=== PATIENT | female | born 1980 | race Caucasian/White ===

== ENCOUNTER → 2017-11-03 17:15 | Outpatient (REF) | payer BC, SELFPAY | LOC: LBN 17:15 | PROVIDERS: PCP Family Medicine; Visit Provider Obstetrics & Gynecology | DX: R30.0 Dysuria (principal) | CPT/HCPCS: 87077; 87086; 87186 ==

== ENCOUNTER 2018-01-11 16:06 | Outpatient (REF) | payer BC, SELFPAY ==
[2018-01-11 18:49] LABS: Bilirubin Negative (Negative); Blood Negative (Negative); Clarity Clear; Glucose Negative (Negative); Ketones Negative (Negative); Leukocyte Esterase Negative (Negative); Nitrite Negative (Negative); Urobilinogen 0.2 EU/dL (Up TO 0.2); pH 5.5 (5-8)
== END 2018-01-11 16:26 ==
LOC: LBN 16:06
PROVIDERS: PCP Family Medicine; Visit Provider Obstetrics & Gynecology
DX: R30.0 Dysuria (principal)
CPT/HCPCS: 81003

== ENCOUNTER 2018-06-01 15:47 | Emergency (ER) | payer BC, SELFPAY ==
[2018-06-01 15:53] VITALS: BP 123/81; PULSE 92; RESP 23; TEMP 36.6; O2SAT 96
--- NOTE | 2018-06-01 15:59 | ED.GENADUL_ITS ---
Discharge Plan Disposition Patient Disposition: HOME Condition: Good Discharge Details Chief Complaint: Allergic Clinical Impression: Allergic reaction caused by a drug Primary Care Provider: Giorgi Schwartz ED Provider: Thomas Brown Home Meds and New Rx's Prescriptions: New prednisone 20 mg tablet 40 mg PO DAILY 3 Days Qty: 6 RF: 0 famotidine [Pepcid] 20 mg tablet 20 mg PO BID 3 Days Qty: 6 RF: 0 diphenhydramine HCl [Benadryl] 25 mg capsule 50 mg PO Q6H 3 Days Qty: 24 RF: 0 epinephrine 0.3 mg/0.3 mL auto-injector 0.3 mg IM ONCE PRN (Reason: anaphylaxis) Qty: 1 RF: 0 Continued metronidazole 500 mg tablet 500 mg PO BID Qty: 14 RF: 0 sulfamethoxazole-trimethoprim [Bactrim DS] 800-160 mg tablet 1 tab PO BID Qty: 6 RF: 0 Discharge Instructions Instructions: General Allergic Reaction (ED) Additional Instructions: Avoid Bactrim and other sulfur antibiotics in the future. Please take Benadryl, Pepcid, prednisone for the next 3 days. EpiPen for future use in case of severe allergic reaction. You received ceftriaxone for UTI. Please contact Dr. Parr tomorrow to let her know how things are going. Return to ED for any increased throat swelling, difficulty breathing, other concerns. Referrals: Vianey Parr MD [ [facility]FF [facility]YSICIAN] - Giorgi Schwartz [Primary Care Provider] - Medical Decision Making Patient with soft palate and uvula edema and a feeling of throat swelling in the setting of allergic reaction to Bactrim. She is given epinephrine 0.3 mg IM. I V is established and she is given Solu-Medrol and Pepcid. She has already taken Benadryl. Patient symptoms resolved within about 10 minutes. She was observed for 4 hours. She still has mild edema of the uvula and right soft palate but it is certainly decreased. She no longer feels any throat swelling. Erythema and pruritus is not returned. Patient is given a dose of IV ceftriaxone for UTI. Patient will be taken off sulfur antibiotic. She will use Benadryl, Pepcid, prednisone for the next 3 days. She is also given a prescription for EpiPen for any future severe allergic reactions. We will have her touch base with Dr. Parr tomorrow in regards to her UTI symptoms. HPI General Mode of arrival: ambulatory . Date/Time Provider Initiated Documentation: 06/01/18 15:51 . Limitations to Documentation: no limitations . Information obtained by: patient . HPI Narrative: Patient presents to ED with allergic reaction. Patient works here in radiology. She just took Bactrim for UTI. Within 30 minutes she developed severe itching, erythema, throat discomfort. She has never had Bactrim previously. She has taken 50 mg of Benadryl orally but symptoms are getting worse especially her throat swelling. She does not have difficulty breathing at this point. She has no GI symptoms. Related Data Home Medications Medication Instructions Recorded Confirmed metronidazole 500 mg tablet 500 mg PO BID #14 tab 03/17/18 03/17/18 diphenhydramine HCl [Benadryl] 50 mg PO Q6H 3 Days #24 cap 06/01/18 epinephrine 0.3 mg IM ONCE PRN #1 each 06/01/18 famotidine [Pepcid] 20 mg PO BID 3 Days #6 tab 06/01/18 prednisone 40 mg PO DAILY 3 Days #6 tab 06/01/18 sulfamethoxazole 800 1 tab PO BID #6 tab 06/01/18 mg-trimethoprim 160 mg tablet Previous Rx's Medication Instructions Recorded metronidazole 500 mg tablet 500 mg PO BID #14 tab 03/17/18 diphenhydramine HCl [Benadryl] 50 mg PO Q6H 3 Days #24 cap 06/01/18 epinephrine 0.3 mg IM ONCE PRN #1 each 06/01/18 famotidine [Pepcid] 20 mg PO BID 3 Days #6 tab 06/01/18 prednisone 40 mg PO DAILY 3 Days #6 tab 06/01/18 sulfamethoxazole 800 1 tab PO BID #6 tab 06/01/18 mg-trimethoprim 160 mg tablet Allergies Allergy/AdvReac Type Severity Reaction Status Date / Time Sulfa (Sulfonamide Allergy Severe Anaphylaxsi Unverified 06/01/18 16:21 Antibiotics) s influenza virus vaccine, AdvReac Severe SWELLING, Unverified 03/17/18 10:13 specific FLUSHING, JOINT PAIN, INTOLERANCE Review of Systems Constitutional Denies chills, Denies fever(s) and Denies weakness ENT Denies dizziness, Denies neck pain, Denies sore throat and Reports throat swelling Cardiovascular Denies chest pain, Denies diaphoresis, Denies syncope and Denies dyspnea Respiratory Denies cough, Denies dyspnea and Denies stridor Gastrointestinal Denies abdominal pain, Denies cramping, Denies diarrhea, Denies loose stools, Denies nausea and Denies vomiting Genitourinary Reports dysuria, Denies pelvic pain and Denies flank pain Musculoskeletal Denies back pain, Denies neck pain and Denies numbness Integumentary/Breasts Reports erythema and Reports rash Neurologic Denies dizziness, Denies syncope, Denies numbness and Denies weakness Allergic/Immunologic Reports throat swelling [facility] Medical History Skin tag (Acute) Contraception (Chronic) Fatigue due to sleep pattern disturbance Surgical History Appendectomy (~2001) Biopsy of breast section (~03/2006) Endometrial Ablation Family History Mother No problems noted. Father Diabetes Essential hypertension Brother No problems noted. Grandfather Essential hypertension Heart disease Grandfather Essential hypertension Heart disease Hyperlipidemia Grandmother No problems noted. Grandmother Essential hypertension Social History Smoking and Tabacco status: Never Female Reproductive History Menstrual Duration of menses: other (light irreg painless menses secondary to endometrial ablation.) control method: permanent sterilization ( vasectomy) History History 2 Para Hx # Term Pregnancies 1 Multiple births Hx # Pregnancies Ectopic pregnancies AB induced Hx Number of Living Children AB spontaneous Exam Const General: cooperative and no acute distress Orientation: alert and oriented x3 [facility] Head: normocephalic and atraumatic Mouth: lip normal, oropharynx normal and moist mucous membranes Throat: uvular edema and other (Soft palate edema on the right) Eyes Conjunctivae: conjunctivae normal Neck Neck: trachea midline Resp Effort & Inspection: normal respiratory effort Auscultation: clear to auscultation bilaterally Cardio Rate: regular rate Rhythm: regular rhythm Heart Sounds: S1 normal and S2 normal Skin General skin exam: erythema (Erythema of the hands and forearms with diffuse pruritus.) Neuro General: alert, oriented x3, no focal motor deficits and CN's II-XI intact bilat erally Extrem General: no clubbing, cyanosis or edema
[2018-06-01] MEDS: methylPREDNISolone SUCC 125 MG VIAL IVP (16:06)
[2018-06-01] MEDS: FAMOTIDINE 20 MG/50 ML BAG 200 MG IVPB (16:06)
[2018-06-01] MEDS: EPINEPHrine 0.3 MG KIT IM (16:06)
--- NOTE | 2018-06-01 16:06 | NUR.NOTE ---
patient lung sounds clear, lip is getting better per patient, hands are not on fire Nursing Note:
[2018-06-01 16:27] VITALS: BP 130/88; PULSE 83; RESP 18; O2SAT 98
--- NOTE | 2018-06-01 16:54 | NUR.NOTE ---
patient reports feels like swelling is migrating in inside the mouth, no stridor or wheezing, MD aware Nursing Note:
--- NOTE | 2018-06-01 17:29 | NUR.NOTE ---
patient resting comfortably, will continue Nursing Note:
[2018-06-01 19:05] VITALS: PULSE 97; RESP 22; O2SAT 95
--- NOTE | 2018-06-01 19:52 | NUR.NOTE ---
Nursing Note: Pt had ceftriaxone infused without issue. Airway patent, oxygen sat 100%. awaiting d/c paperwork, will continue to monitor.
[2018-06-01 20:14] VITALS: PULSE 90; RESP 20; O2SAT 100
== END 2018-06-01 20:15 | disposition home or self-care (01) ==
PROVIDERS: Emergency Provider Emergency Medicine; PCP Family Medicine
DX: T78.40XA Allergy, unspecified, initial encounter (principal); N39.0 Urinary tract infection, site not specified
CPT/HCPCS: 96365; 96367; 96372; 96375; 99284; J0171; J0696; J2930

== ENCOUNTER 2019-06-09 12:42 | Outpatient (REF) | payer BC, SELFPAY ==
--- NOTE | 2019-06-09 11:30 | PAPFT_PTH ---
PATIENT: Susanna Emery LOC: [facility] U#:[id number] AGE/SX: 38/F ROOM: RE06/09/[address]: ROSALINDA Sidhu : 1980 BED: DIS: 06/09/2019 SPEC #: [id number] RECD: 06/09/19 13:03 STATUS: BAYLEE REGrabiel #: [id number] EYAD: 06/09/19 11:[address]: Lanie Ramos DEPT: [facility] Cytology RECD BY: Dawna Thomas ENTERED: 06/09/19 13:03 SP TYPE: PAPFT OTHR DR: Giorgi Schwartz MD Tissues: 1 - CX/ENDOCX FOR PAP SMEARS Procedures: PAP THIN PREP/UVM Screening HPV DNA PROBE Comments: [id number]
== END 2019-06-09 13:02 ==
LOC: LBN 12:42
PROVIDERS: PCP Family Medicine; Visit Provider Nurse Practitioner Family
DX: Z12.4 Encounter for screening for malignant neoplasm of cervix (principal); Z11.51 Encounter for screening for human papillomavirus (HPV)
CPT/HCPCS: 88142; 87624

== ENCOUNTER 2019-07-19 11:55 | Outpatient (CLI) | payer BC, SELFPAY ==
[2019-07-19 14:02] LABS: Glucose 83 mg/dL (74-106)
== END 2019-07-19 12:15 ==
PROVIDERS: PCP Family Medicine; Visit Provider Family Medicine
DX: E03.9 Hypothyroidism, unspecified (principal); R73.9 Hyperglycemia, unspecified
CPT/HCPCS: 36415; 82947; 84443

== ENCOUNTER 2019-07-19 16:33 | Emergency (ER) | payer BC, SELFPAY ==
[2019-07-19] VITALS (7 sets, daily range): BP systolic 132–140; BP diastolic 78–90; PULSE 74–94; RESP 15–23; TEMP 37.2; O2SAT 98–100
--- NOTE | 2019-07-19 16:47 | ED.GENADUL_ITS ---
Discharge Plan Disposition Patient Disposition: HOME Condition: Good Discharge Details Chief Complaint: Chest Pain Clinical Impression: Chest pain, Light headedness Primary Care Provider: Giorgi Schwartz ED Provider: Yovani De La Cruz Home Meds and New Rx's Prescriptions: No Action epinephrine 0.3 mg/0.3 mL auto-injector 0.3 mg IM ONCE PRN (Reason: anaphylaxis) Qty: 1 RF: 0 Discharge Instructions Instructions: Chest Pain (ED), Lightheadedness (ED) Additional Instructions: At this time your cardiac work-up shows no abnormalities. Your blood work and physical exam show no suggestions of stroke or mini stroke at this time. Your blood work is otherwise unremarkable and very reassuring. If you notice any worsening of your symptoms, or any new symptoms such as vomiting, diarrhea, fever, chills, shortness of breath, chest pain, numbness, weakness, or fainting , please return immediately to the emergency department for reevaluation. Please follow up with your primary care provider as soon as possible for reassessment and reevaluation. As always, it was a pleasure participating in your medical care today. Referrals: Giorgi Schwartz. [Primary Care Provider] - Medical Decision Making 38-year-old female with no significant past medical history who presents today for evaluation of lightheadedness dizziness and chest pain. Patient states that for the last 5 weeks she has had occasional aches in her left leg, mild tingling on the lateral aspect of her left calf. It is not tender to the touch, but symptoms were present independently. This is remained stable, yesterday the patient noticed a sudden onset of dizziness, lightheadedness, where she felt that she had some tingling on the left side of her body, felt like she was going to pass out. She did not pass out. She became extremely sweaty shortly thereafter, eventually the symptoms resolved totally on their own. She had no chest pain at that time or shortness of breath. However today she developed some mild central chest pain, which she states she has had before. She denies any burning sensation. She describes it is achy in nature. It comes and goes, and is not improved with leaning forward. She does admit to a mild pleuritic component when she breathes out, but denies any inhalation pain. She denies any shortness of breath, chest tightness, bandlike sensation around the chest, or tearing or ripping sensation. At this time she has no other symptoms whatsoever and feels well. She denies any other episodes of lightheadedness. Denies PE risk factors such as recent long car rides, immobilization, recent surgery, prior history of DVT or PE, family history of PE or DVT, morbid obesity, exogenous estrogen and smoking, hemoptysis, history of cancer. She does have a family history of cardiac disease in her father and grandfather, but denies any previous cardiac disease for herself. No other complaints at this time. No other modifying factors. Physical exam demonstrates no evidence of neurologic deficit. Physical exam otherwise demonstrates no abnormalities in general. Differential is broad, but may include potential PE, although with no significant PE risk factors I do feel that rule out is certainly reasonable with a d-dimer. Cardiac etiology unlikely but we will perform ACS work-up. Dehydration may certainly be a component. Electrolyte abnormality also of question. We will gently rehydrate, monitor for his life-threatening abnormalities and reassess. At this time I see no indication for CT imaging of the head, with no evidence of neurologic deficit or other abnormality. However I did discuss imaging options with the patient regards a CT scan of the head patient would like to hold off on this radiographic evaluation as well. 6:18 PM Patient's laboratory work-up is returned, no abnormalities. D-dimer is well within normal limits. No clinical evidence of DVT, no concerning symptoms suggestive of significant PE. Symptoms inconsistent with acute intracranial abnormality with no focal neurologic deficits. Troponin is normal. No indication for repeat troponin as her symptoms occurred over 6 hours ago. Bedside limited ultrasound of the heart demonstrates no pericardial effusion, cardiac wall hypertrophy, signs of right heart strain, or motion of normalities. With no abnormalities on exam, in asymptomatic patient, do feel her symptoms may have been secondary to mild dehydration, her chest pain may be from very mild gastritis versus musculoskeletal irritation. This time I do feel that the patient can be discharged home. With discussed red flags which to return. I have extensively reviewed the treatment plan and discharge instructions with the patient. I have addressed all patient concerns at this time. The patient was made aware of what symptoms to monitor for that would warrant a return to the emergency department. Discussed the plan with the patient, they demonstrate verbal understanding and agreement with our assessment and plan at this time. EKG 16: 39 Rate 86, intervals normal, sinus rhythm, no significant ST elevations or depressions, there is an inverted T wave in V1. No evidence of STEMI. No evidence of Brugada syndrome, no epsilon wave, no delta wave. FINDINGS: Lungs: Clear lungs. Pleural space: No pneumothorax. No sizable pleural effusion. Heart/Mediastinum: No cardiomegaly. Bones/joints: Unremarkable. IMPRESSION: Clear lungs. Thank you for allowing us to participate in the care of your patient. Dictated and Authenticated by: Steven Pineda MD 07/19/2019 6:05 PM Eastern Time ([place] & [place]) HPI General Date/Time Provider Initiated Documentation: 07/19/19 16:47 . HPI Narrative: 38-year-old female with no significant past medical history who presents today for evaluation of lightheadedness dizziness and chest pain. Patient states that for the last 5 weeks she has had occasional aches in her left leg, mild tingling on the lateral aspect of her left calf. It is not tender to the touch, but symptoms were present independently. This is remained stable, yesterday the patient noticed a sudden onset of dizziness, lightheadedness, where she felt that she had some tingling on the left side of her body, felt like she was going to pass out. She did not pass out. She became extremely sweaty shortly thereafter, eventually the symptoms resolved totally on their own. She had no chest pain at that time or shortness of breath. However today she developed some mild central chest pain, which she states she has had before. She denies any burning sensation. She describes it is achy in nature. It comes and goes, and is not improved with leaning forward. She does admit to a mild pleuritic component when she breathes out, but denies any inhalation pain. She denies any shortness of breath, chest tightness, bandlike sensation around the chest, or tearing or ripping sensation. At this time she has no other symptoms whatsoever and feels well. She denies any other episodes of lightheadedness. Denies PE risk factors such as recent long car rides, immobilization, recent surgery, prior history of DVT or PE, family history of PE or DVT, morbid obesity, exogenous estrogen and smoking, hemo ptysis, history of cancer. She does have a family history of cardiac disease in her father and grandfather, but denies any previous cardiac disease for herself. No other complaints at this time. No other modifying factors. Related Data Home Medications Medication Instructions Recorded Confirmed epinephrine 0.3 mg IM ONCE PRN #1 each 06/01/18 06/09/19 Previous Rx's Medication Instructions Recorded epinephrine 0.3 mg IM ONCE PRN #1 each 06/01/18 Allergies Allergy/AdvReac Type Severity Reaction Status Date / Time Sulfa (Sulfonamide Allergy Severe Anaphylaxsi Unverified 06/01/18 16:21 Antibiotics) s influenza virus vaccine, AdvReac Severe SWELLING, Unverified 03/17/18 10:13 specific FLUSHING, JOINT PAIN, INTOLERANCE General Stated Complaint: Chest Pain BERNARD: 2 Review of Systems All systems reviewed & are unremarkable except as noted in HPI and below PFSH Medical History (Updated 07/19/19 @ 18:09 by Yovani De La Cruz DO) Contraception (Chronic) 's vasectomy Fatigue due to sleep pattern disturbance recommended measures to improve sleep hygeine Skin tag (Acute) on chest. Surgical History (Updated 06/09/19 @ 11:37 by Lanie Ramos NP) Appendectomy (~2001) Biopsy of breast Fibroadenoma section (~03/2006) Endometrial Ablation Thermachoice Status post breast augmentation (Acute) Social History Smoking/Tobacco Use Status: Never Alcohol Intake: current Alcohol Intake frequency: holidays/special occasions only Drug use: Never Do you feel safe at home: Yes Do you feel safe in your relationship?: Yes Female Reproductive History Menstrual Duration of menses: other (light irreg painless menses secondary to endometrial ablation.) control method: permanent sterilization ( vasectomy) History History 2 Para Hx # Term Pregnancies 1 Multiple births Hx # Pregnancies Ectopic pregnancies AB induced Hx Number of Living Children AB spontaneous Exam Narrative Exam Narrative: 1.Const: Well-nourished, Well-developed, appearing stated age 2.Eyes: PERRL, no conjunctival injection, and symmetrical lids. 3.ENT: Atraumatic external nose and ears. Dry MM. Neck: Symmetric, trachea midline, No thyromegaly. 4.CVS: +S1/S2, No murmurs or gallops. Peripheral pulses 2+ and equal in all extremities. Brisk capillary refill in all extremities. No improvement of pain when she leans forward. No reproducible pain on palpation of the chest. 5.RESP: Unlabored respiratory effort. Clear to auscultation bilaterally. No wheezes rales or rhonchi 6.GI: Soft, Nontender/Nondistended, No hepatosplenomegaly. No guarding or rebound. 7.MSK: Normocephalic/Atraumatic, Extremities w/o deformity or ttp No cyanosis or clubbing, Normal movement of all extremities no calf tenderness. No unilateral calf or lower extremity swelling. Dorsalis pedis posterior tibial pulses +2 bilaterally. 8.Skin: Warm, Dry. No rashes or lesions. No redness or warmth in the lower extremities. 9.Neuro: account development representative II-XII grossly intact. Sensation grossly intact, no focal neurologic deficits. All 6 cardinal planes of vision are fully intact. No evidence of rotatory or vertical nystagmus. The patient demonstrated a normal [id number]-phzdbx, good dexterity. There was no evidence of dysdiadochokinesia. Patient was able to ambulate without difficulty. There was no wide-based gait. Romberg testing was normal. Udna-zm-gwvg testing was normal. Sensation was intact bilaterally as well as muscle strength bilaterally for all extremities. Patient was able to verbalize butter cup with no slurring, or miss pronunciation. 10.Psych: (AAO) x3. Appropriate mood and affect Course Vital Signs Vital signs: Vital Signs Temperature 37.2 C 07/19/19 16:36 Pulse 94 H 07/19/19 16:36 Respiratory Rate 22 07/19/19 16:36 Blood Pressure 140/90 07/19/19 16:36 Pulse Oximetry 99 07/19/19 16:36 Temperature 37.2 C 07/19/19 16:36 Temperature Source Skin 07/19/19 16:36 Pulse 94 H 07/19/19 16:36 Respiratory Rate 22 07/19/19 16:36 Respiratory Effort 07/19/19 16:43 Blood Pressure 140/90 07/19/19 16:36 Pulse Oximetry 99 07/19/19 16:36 Oxygen Delivery Method Room Air 07/19/19 16:36 Oxygen Flow Rate 0 07/19/19 16:36
[2019-07-19] MEDS: Normal Saline 500 ML IV ×2 (17:11→17:37)
[2019-07-19 17:12] LABS: Abs Immature Grans 0.01 k/cumm (0.0-0.09); Absolute Basophil Count 0.02 k/cumm (0.0-0.2); Absolute Eosinophil Count 0.24 k/cumm (0.0-0.7); Absolute Lymphocyte Count 2.22 k/cumm (1.2-3.4); Absolute Monocyte Count 0.54 k/cumm (0.11-0.7); Absolute Neutrophil Count 4.37 k/cumm (1.2-6.7); Basophils % 0.3; Eosinophils % 3.2; HCT 40.4 % (36.0-46.0); HGB 13.5 g/dL (12.0-15.5); Immature Grans % 0.1 %; Mean Corp. HGB Concentration 33.4 g/dL (32.0-36.0); Mean Corpuscular Hemoglobin 30.2 pg (27.0-33.0); Mean Corpuscular Volume 90.4 fL (80-95); Mean Platelet Volume 9.7 fL (8.0-11.0); Monocytes % 7.3; Neutrophils % 59.1; Platelet Count 296 x1000/uL (130-400); RBC 4.47 m/cumm (4.00-5.20); RBC Distribution Width 12.8 % (11.7-14.6)
[2019-07-19 17:19] LABS: INR 1.1 (0.9-1.1); PTT Activated 28.7 sec (21.0-31.4); Prothrombin Time 11.3 sec (9.3-11.0)
[2019-07-19 17:28] LABS: Troponin I < 0.05 ng/Ml (<0.06)
[2019-07-19 17:30] LABS: ALT 19 U/L (14-59); AST 13 U/L (15-37); Albumin 3.9 g/dL (3.4-5.0); Alkaline Phosphatase 61 U/L (46-116); Anion Gap 8.2 mmol/L (3-11); BUN 12 mg/dL (7-18); Bilirubin, Total 0.3 mg/dL (0.2-1.0); CO2 27.8 mmol/L (21.0-32.0); CREATININE 0.76 mg/dL (0.55-1.02); Calcium 8.8 mg/dL (8.5-10.1); Chloride 104 mmol/L (98-107); Glucose 89 mg/dL (74-106); Potassium 3.5 mmol/L (3.5-5.1); Sodium 140 mmol/L (136-145); Total Protein 7.7 g/dL (6.4-8.2)
--- NOTE | 2019-07-19 17:30 | DI.RAD_ITS ---
EXAM: XR CHEST 2V PA LATERAL CLINICAL HISTORY: central chest pain TECHNIQUE: 2D digital imaging was performed. COMPARISON: No exams were available for comparison FINDINGS: The heart is not enlarged. The lungs are clear and well expanded. No pleural effusion seen. Mediastin al contours appear intact. IMPRESSION: Normal chest
[2019-07-19 17:31] LABS: NT-proBNP 26 pg/mL (<300); TSH (W/Ref FT4) 0.96 uIU/mL (0.36-3.74)
[2019-07-19 17:37] LABS: D-Dimer 140 ng/mlFEU (<500)
--- NOTE | 2019-07-19 18:05 | DI.VRAD_ITS ---
PROCEDURE INFORMATION: Exam: XR Chest, 2 Views Exam date and time: 07/19/2019 5:41 PM Age: 38 years old Clinical indication: Other: Central chest pain TECHNIQUE: Imaging protocol: XR of the chest Views: 2 views. COMPARISON: No relevant prior studies available. FINDINGS: Lungs: Clear lungs. Pleural space: No pneumothorax. No sizable pleural effusion. Heart/Mediastinum: No cardiomegaly. Bones/joints: Unremarkable. IMPRESSION: Clear lungs. Dictated and Authenticated by: Steven Pineda MD. Ordering:SENTHIL Pina MD
== END 2019-07-19 18:24 | disposition home or self-care (01) ==
PROVIDERS: Emergency Provider Student in an Organized Health Care Education/Training Program; PCP Family Medicine
DX: R07.89 Other chest pain (principal); R42 Dizziness and giddiness; E86.0 Dehydration; M79.605 Pain in left leg; Z82.49 Family history of ischemic heart disease and other diseases of the circulatory system
CPT/HCPCS: 80053; 81025; 93005; 96360; 99284; 71046; 83880; 84443; 84484; 85025; 85379; 85610; 85730; 93010

== ENCOUNTER 2020-08-12 03:27 | Outpatient (CLI) | payer BC, SELFPAY ==
--- NOTE | 2020-08-12 10:54 | DI.MAMMO_ITS ---
Exam(s) MG MAMMO SCREENING 60 MIN DUR EXAM: MG MAMMO SCREENING 60 MIN DUR CLINICAL HISTORY: screening,z12.39. TECHNIQUE: Bilateral full field digital CC and MLO mammographic images were obtained with 3D tomosyn thesis and utilizing computer aided detection (CAD). COMPARISON: None. This is a baseline mammogram on this 39-year-old patient FINDINGS: Both CC and MLO views of both breasts performed. Both conventional 2D and 3D implant displacement vi ews were performed. There are bilateral silicone retropectoral implants which appear intact. No capsular calcification. Fibroglandular tissue is moderately dense. No obvious focal findings in left breast. In the right b reast there are few benign-appearing asymmetric nodular densities noted. One of these has typical ap pearance of intramammary lymph node. In addition, there is a group of in the right breast located ap proximately 5-6 cm in from the nipple which presently has benign appearance but requires repeat mammo gram in 6 months. There are no significant microcalcification groups in the opposite-left breast. There is no significant architectural distortion nor skin thickening-retraction. IMPRESSION: 1. Intact appearing bilateral retropectoral silicone implants. 2. No radiographic evidence of malignancy in left breast. 3. Subtle right breast nodular densities. Ultrasound recommended. 4. Right breast presently benign-appearing microcalcification group which requires repeat mammogram i n 6 months to ensure stability. BI-RADS Category 0 - Assessment Incomplete: Need additional imaging evaluation Breast Density - Category C - Heterogeneously dense Breast density Category C or D implies that the patient has dense breast tissue. Dense breast tissue can make it harder to find cancer on a mammogram. Dense breast tissue is also associated with an incr eased risk of breast cancer. This information about the result of the mammogram report was provided to the patient to raise their awareness. Use this report when you speak with the patient about their risks for breast cancer, which includes their family history. At that time, you may recommend additional screening tests (Ultrasoun d or MRI) as these tests may add significant information. A negative radiographic report should not delay biopsy if a dominant or clinically suspicious mass is present. Up to ten percent of cancers are not identified on mammography. A negative report may reinforce clinical impression. Adenosis and dense breasts may obscure an underlying neoplasm. False positive reports average 6 to 10%. Patient will receive a letter notifying them of these results.
[2020-08-12 11:53] LABS: Hemoglobin A1C 4.9 % (<5.7)
[2020-08-12 12:28] LABS: Calculated LDL 89 mg/dL (<100); Cholesterol 164 mg/dL (<200); HDL Cholesterol 58 mg/dL (40-60); Triglyceride 87 mg/dL (<150)
== END 2020-08-12 03:28 | disposition home or self-care (01) ==
LOC: LBO 03:27
PROVIDERS: PCP Family Medicine; Visit Provider Nurse Practitioner Family
DX: Z12.31 Encounter for screening mammogram for malignant neoplasm of breast (principal); R92.8 Other abnormal and inconclusive findings on diagnostic imaging of breast; Z98.82 Breast implant status; Z13.1 Encounter for screening for diabetes mellitus; Z13.220 Encounter for screening for lipoid disorders
CPT/HCPCS: 77063; 77067; 80061; 83036

== ENCOUNTER 2021-02-18 10:14 | Outpatient (REF) | payer BC, SELFPAY ==
--- NOTE | 2021-02-18 10:00 | PAPFT_PTH ---
PATIENT: Susanna Emery LOC: [facility] U#:[id number] AGE/SX: 40/F ROOM: RE02/18/[address]: Vianey Parr : 1980 BED: DIS: 02/18/2021 SPEC #: [id number] RECD: 02/18/21 12:54 STATUS: BAYLEE REGrabiel #: [id number] EYAD: 02/18/21 10:[address]: Vianey Parr DEPT: [facility] Cytology RECD BY: Dawna Thomas ENTERED: 02/18/21 12:54 SP TYPE: PAPFT OTHR DR: Samson Wellington, MEMO Tissues: 1 - CX/ENDOCX FOR PAP SMEARS Procedures: PAP THIN PREP/UVM Screening HPV DNA PROBE Comments: [id number]
== END 2021-02-18 10:15 | disposition home or self-care (01) ==
LOC: LBN 10:14
PROVIDERS: PCP Nurse Practitioner Family; Visit Provider Obstetrics & Gynecology Gynecology
DX: Z12.4 Encounter for screening for malignant neoplasm of cervix (principal); Z11.51 Encounter for screening for human papillomavirus (HPV)
CPT/HCPCS: 88142; 87624

== ENCOUNTER 2021-02-24 00:18 | Outpatient (CLI) | payer BC, SELFPAY ==
--- NOTE | 2021-02-24 | DI.US_ITS ---
Exam(s) US BREAST RT COMPLETE EXAM: US BREAST BILATREAL COMPLETE CLINICAL HISTORY: 6 MO FU R92.8. TECHNIQUE: Complete ultrasound of the both breasts was performed including all 4 quadrants, the retr oareolar regions, and the bilateral axilla. COMPARISON: Prior ultrasound examination of July 2020 was reviewed as was the baseline mammogram of t hat time. Also today's diagnostic bilateral mammogram was reviewed. This is 40-year-old patient und erwent remote ultrasound-guided biopsy of right breast finding 12 o'clock position over 20 years ago, according to patient FINDINGS: RIGHT BREAST ULTRASOUND: At the 12 o'clock position the previously described lobulated nodule is again noted, unchanged in siz e, measuring 10 x 5 millimeters, unchanged echogenic focus consistent with biopsy marker clip is note d within this nodule. Probable fibroadenoma. Otherwise, benign-appearing lymph node noted at the 5 o'clock position and other benign-appearing lym ph node at 7 o'clock position and other benign appearing lymph node at the 9 o'clock position. Some of these are visible on the mammogram. No new solid lesions in the right breast. No new findings in the immediate retroareolar region. Right axilla is negative for significant adenopathy. LEFT BREAST ULTRASOUND: At the 11 o'clock position there is again noted the previously described well-defined wider than tall er 2.8 by 0 point 8 cm nodule. This exhibits slightly increased through transmission and is probably another fibroadenoma, unchanged from the July 2020 study. There are no new solid lesions in all 4 quadrants of the left breast. Left axilla is negative for significant adenopathy. IMPRESSION: Stable ultrasound appearance of what are probably fibroadenomas, 1 in each breast, specifically at th e 12 o'clock position of the right breast and 11 o'clock position of the left breast. The 12 o'clock position right breast nodule underwent remote biopsy by ultrasound guidance according to the patient approximately 20 years ago, and indeed there appears to be a biopsy marker clip located within this right breast 12 o'clock position nodule. See separate diagnostic right breast mammogram report from today. This revealed stable microcalcific ations which are unchanged from the baseline mammogram of the aug 12 2020. Appropriate follow-up is to keep her on a yearly mammogram and ultrasound schedule, this implying olga lidia t her next bilateral breast imaging would be in July 2021, with earlier imaging if a self detected cira ast change is noted.. BI-RADS Category 2 - Benign Findings Breast Density - Category C - Heterogeneously dense Breast density Category C or D implies that the patient has dense breast tissue. Dense breast tissue can make it harder to find cancer on a mammogram. Dense breast tissue is also associated with an incr eased risk of breast cancer. This information about the result of the mammogram report was provided to the patient to raise their awareness. Use this report when you speak with the patient about their risks for breast cancer, which includes their family history. At that time, you may recommend additional screening tests (Ultrasoun d or MRI) as these tests may add significant information. A negative radiographic report should not delay biopsy if a dominant or clinically suspicious mass is present. Up to ten percent of cancers are not identified on mammography. A negative report may reinforce clinical impression. Adenosis and dense breasts may obscure an underlying neoplasm. False positive reports average 6 to 10%. Patient will receive a letter notifying them of these results.
--- NOTE | 2021-02-24 | DI.US_ITS ---
Exam(s) US BREAST LT COMPLETE EXAM: US BREAST LT COMPLETE CLINICAL HISTORY: 6 MO FU R92.8. TECHNIQUE: Complete ultrasound of the breast was performed including all 4 quadrants, the retroareo lar region, and the ipsilateral axilla. COMPARISON: Prior mammograms were reviewed. FINDINGS: See combined report entitled BILATERAL BREAST ULTRASOUND IMPRESSION: Appropriate follow-up is . Category: Density: Breast density Category C or D implies that the patient has dense breast tissue. Dense breast tissue can make it harder to find cancer on a mammogram. Dense breast tissue is also associated with an incr eased risk of breast cancer. This information about the result of the mammogram report was provided to the patient to raise their awareness. Use this report when you speak with the patient about their risks for breast cancer, which includes their family history. At that time, you may recommend additional screening tests (Ultrasoun d or MRI) as these tests may add significant information. A negative radiographic report should not delay biopsy if a dominant or clinically suspicious mass is present. Up to ten percent of cancers are not identified on mammography. A negative report may reinforce clinical impression. Adenosis and dense breasts may obscure an underlying neoplasm. False positive reports average 6 to 10%. Patient will receive a letter notifying them of these results.
--- NOTE | 2021-02-24 13:15 | DI.MAMMO_ITS ---
Exam(s) MAMMO DIAGNOSTIC UNI EXAM: MAMMO DIAGNOSTIC UNI -RIGHT CLINICAL HISTORY: 6 mo f/u, r92.8. TECHNIQUE: Unilateral spot mammographic images were obtained with 3D tomosynthesis technique and uti lizing computer aided detection (CAD). COMPARISON: Prior baseline mammogram of July 2020 FINDINGS: Again noted are retropectoral silicone implants. Benign-appearing lymph nodes again noted. The microcalcification group previously described on the baseline mammogram appears unchanged and rem ains punctate and benign appearance. There are no new malignant-appearing microcalcification groups. No new architectural distortion or skin thickening-traction. Please see separate bilateral breast ultrasound report reveals stable findings compared to prior ultr asound of July 2020. IMPRESSION: Moderately dense fibroglandular tissue. Stable appearance of previously described right breast micro calcification group. See separate breast ultrasound report. Appropriate follow-up is to keep this patient on a yearly mammogram and ultrasound schedule, this imp lying that her next bilateral breast imaging would be in July 2021, with earlier imaging if a self det ected breast change is noted.. The patient was informed of the findings and follow-up recommendations prior to leaving the [facility] today. BI-RADS Category 2 - Benign Findings Breast Density - Category C - Heterogeneously dense Breast density Category C or D implies that the patient has dense breast tissue. Dense breast tissue can make it harder to find cancer on a mammogram. Dense breast tissue is also associated with an incr eased risk of breast cancer. This information about the result of the mammogram report was provided to the patient to raise their awareness. Use this report when you speak with the patient about their risks for breast cancer, which includes their family history. At that time, you may recommend additional screening tests (Ultrasoun d or MRI) as these tests may add significant information. A negative radiographic report should not delay biopsy if a dominant or clinically suspicious mass is present. Up to ten percent of cancers are not identified on mammography. A negative report may reinforce clinical impression. Adenosis and dense breasts may obscure an underlying neoplasm. False positive reports average 6 to 10%. Patient will receive a letter notifying them of these results.
== END 2021-02-24 00:38 ==
PROVIDERS: PCP Nurse Practitioner Family; Visit Provider Nurse Practitioner Family
DX: R92.8 Other abnormal and inconclusive findings on diagnostic imaging of breast (principal); Z09 Encounter for follow-up examination after completed treatment for conditions other than malignant neoplasm
CPT/HCPCS: 76642; 77061; 77065; G0279

== ENCOUNTER 2021-09-02 21:34 | Outpatient (REF) | payer BC, SELFPAY ==
[2021-09-02 15:19] LABS: Clarity CLOUDY (Clear)
[2021-09-02 15:20] LABS: Nitrite Color Interference (Negative)
[2021-09-02 15:21] LABS: Bilirubin Color Interference (Negative); Blood Color Interference (Negative); Glucose Color Interference mg/dL (Negative); Ketones Color Interference mg/dL (Negative); Leukocyte Esterase Color Interference (Negative); Urobilinogen Color Interference EU/dL (Up TO 0.2)
[2021-09-02 15:23] LABS: Bacteria Many HPF (Negative); C & S Indicated? C&S Done As Ordered; Casts Negative LPF (Negative); Crystals Negative HPF (Negative); Epithelial Cells Few HPF (Negative); Mucus Negative (Negative); WBC 20-50 HPF (0-5)
== END 2021-09-02 21:35 | disposition home or self-care (01) ==
LOC: LBN 21:34
PROVIDERS: PCP Nurse Practitioner Family; Visit Provider Obstetrics & Gynecology
DX: R30.0 Dysuria (principal)
CPT/HCPCS: 87077; 81003; 81015; 87086; 87186

== ENCOUNTER 2021-09-30 15:06 | Outpatient (REF) | payer BC, SELFPAY ==
[2021-09-30 15:19] LABS: Source Nasal/Nares
[2021-10-01 05:39] LABS: COVID-19 PCR Negative (Negative)
== END 2021-09-30 15:07 | disposition home or self-care (01) ==
LOC: LBN 15:06
PROVIDERS: PCP Nurse Practitioner Family; Visit Provider Urology
DX: Z20.822 Contact with and (suspected) exposure to COVID-19 (principal); Z01.818 Encounter for other preprocedural examination
CPT/HCPCS: 87635

== ENCOUNTER 2021-10-02 07:02 | Day surgery (SDC) | payer BC, SELFPAY ==
[2021-10-02 07:18] VITALS: BP 129/90; PULSE 86; RESP 16; TEMP 36.4; O2SAT 98
[2021-10-02] MEDS: Ciprofloxacin 500 MG TAB PO (07:36)
[2021-10-02] MEDS: Lactated Ringers 1,000 ML 80 ML IV (07:47)
--- NOTE | 2021-10-02 08:59 | W.PM.HP.N ---
Date of service: 10/02/21 Time of Service: 08:59 Assessment and Plan Assessment and plan (1) Stress incontinence: Status: Acute Assessment and plan: Her incontinence is a combination of stress urinary incontinence and intrinsic sphincter deficiency. She presents for an injection of a bulking agent at the bladder neck. History of Present Illness History of Present Illness Chief Complaint: Urinary incontinence Narrative: Susanna is a 40-year-old female referred to urology by [facility] for stress incontinence.? Patient reports that this is going on for several years.? She finds that she will have urinary incontinence with exercise, coughing and sneezing.? She does not have any urgency incontinence.? She has found that she will limit her fluid intake as well as wear dark clothing so others are not aware of her incontinence. She has not tried pelvic floor physical therapy.? She has had a but no other pelvic surgeries that would affect this concern. She notes that she finds this condition very embarrassing with only being 40 years old.? It has drastically affected her quality of life.? She notes that she thoroughly enjoys exercising and running but does not feel like she can do those things without urinary leakage. Review of Systems Narrative: No fevers or chills No vision change or dysphasia No diabetes or thyroid dysfunction No shortness of breath, cough or hemoptysis No chest pain or palpitations No nausea, vomiting, hepatitis, ulcers, jaundice No seizures, strokes or peripheral neuropathy No bleeding disorders or anemia No gout PFSH All Active Problems HPV test positive (Acute) 05/2019. Normal Pap positive HR HPV. 01/2021 repeat Pap/HPV Stress incontinence (Acute) PMDD (premenstrual dysphoric disorder) (Acute) Nabothian cyst (Acute) Encounter for screening for other viral diseases (Acute) Bicornuate uterus (Acute 09/10/11) Medical History Contraception 's vasectomy Fatigue due to sleep pattern disturbance recommended measures to improve sleep hygeine Skin tag on chest. Surgical History Appendectomy (~2001) Biopsy of breast Fibroadenoma section (~03/2006) Endometrial Ablation Thermachoice Status post breast augmentation Family History Mother No problems noted. Father Diabetes Essential hypertension Grandfather Essential hypertension Heart disease Grandfather Essential hypertension Heart disease Hyperlipidemia Grandmother Essential hypertension Social History Smoking/Tobacco Use Status: Never Second Hand Exposure: Yes Smoking risk assessment performed?: Yes Alcohol Intake: never Drug use: Never Substance use type: does not use Caregiver/Support person: No Household members: spouse and children Communication Needs: None Pets and animals: Yes Sexually active: Yes Do you think of yourself as: straight/heterosexual Current gender identity: female What is your relationship status?: How often do you talk on the phone with friends or family?: three or more times per week How often do you get together with friends or relatives?: three or more times per week How often do you attend sabianism or buddhism services?: decline to answer Do you belong to any clubs or organized social groups?: yes Panel score (0-1 are the most socially isolated patients): 3 What type of physical activity do you participate in: walking Duration: 30-45 minutes/day Frequency: 5-6 times per week Judith/Yazdanism: Confucianism Special judith needs: No Seatbelt use: always Helmet use: Yes Helmet use: always Drive intox or ride w/intox chain saw driver: No Do you feel safe at home: Yes Do you feel safe in your relationship?: Yes Female Reproductive History Menstrual Duration of menses: other (light irreg painless menses secondary to endometrial ablation.) control method: permanent sterilization ( vasectomy) History History 2 Para Hx # Term Pregnancies 1 Multiple births Hx # Pregnancies Ectopic pregnancies AB induced Hx Number of Living Children AB spontaneous Meds Allergies and Home Medications Allergies Allergy/AdvReac Type Severity Reaction Status Date / Time Sulfa (Sulfonamide Allergy Severe Anaphylaxsi Verified 10/02/21 07:16 Antibiotics) s influenza virus vaccine, AdvReac Severe SWELLING, Verified 10/02/21 07:16 specific FLUSHING, JOINT PAIN, INTOLERANCE celecoxib [From Celebrex] AdvReac rash Verified 10/02/21 07:16 Home Medications Medication Instructions Recorded Confirmed Type Unknown [No Known Home Meds] 10/01/21 10/02/21 History Exam Const General: cooperative and comfortable Neck Neck: supple Resp Effort & Inspection: normal respiratory effort Auscultation: clear to auscultation bilaterally Cardio Rate: regular rate Rhythm: regular rhythm GI Palpation: soft and no masses Neuro General: patient alert, patient awake and patient oriented x3 Results Last Vital Signs Temp 36.4 C L 10/02/21 07:18 Pulse 86 10/02/21 07:18 Resp 16 10/02/21 07:18 BP 129/90 10/02/21 07:18 Pulse Ox 98 10/02/21 07:18
--- NOTE | 2021-10-02 09:01 | W.ANESPRE ---
General Info Date of Service Date Performed: 10/02/21 Height: 5 ft 4 in Weight: 69.6 kg Body Mass Index (BMI): 26.3 Surgical Procedure: Operation Date: 10/02/21 09:10 Proposed Procedure Side Surgeon p Cystoscopy/Transuretheral Injection of Coaptite Estrada Velazquez MD Meds Allergies and Home Medications Allergies Allergy/AdvReac Type Severity Reaction Status Date / Time Sulfa (Sulfonamide Allergy Severe Anaphylaxsi Verified 10/02/21 07:16 Antibiotics) s influenza virus vaccine, AdvReac Severe SWELLING, Verified 10/02/21 07:16 specific FLUSHING, JOINT PAIN, INTOLERANCE celecoxib [From Celebrex] AdvReac rash Verified 10/02/21 07:16 Home Medication Medication Instructions Recorded Unknown [No Known Home Meds] 10/01/21 Current Visit Medications: Current Medications Generic Name Dose Route Start Last Admin Trade Name Freq PRN Reason Stop Dose Admin Ciprofloxacin HCl 500 mg 10/02/21 06:00 10/02/21 07:36 Ciprofloxacin 500 Mg Tab PO 10/02/21 16:00 500 mg PREOP BRAULIO Administration Ringer's Solution 1,000 mls @ 80 mls/hr 10/02/21 06:00 10/02/21 07:47 IV 10/31/21 23:59 80 mls/hr INFUSION BRAULIO Administration IV Miscellaneous Supplies 1 each 10/02/21 06:00 Iv Access IV 10/31/21 23:59 DIRECTED BRAULIO Sodium Chloride 0 ml 10/02/21 06:00 Normal Saline Flush 10 Ml Syr IV 10/31/21 23:59 PRN PRN Sodium Chloride 0 ml 10/02/21 06:00 Normal Saline 10 Ml Vial IJ 10/31/21 23:59 DIRECTED PRN Sterile Water 0 ml 10/02/21 06:00 Water,Injection,Sterile 10 Ml Vial IJ 10/31/21 23:59 DIRECTED PRN PFSH Active Problems Active Problems: Problem Status Onset Code HPV test positive Stress incontinence N39.3 PMDD (premenstrual dysphoric disorder) F32.81 Nabothian cyst N88.8 Encounter for screening for other viral diseases Z11.59 Bicornuate uterus 09/10/11 Q51.3 Medical History Medical History Contraception 's vasectomy Fatigue due to sleep pattern disturbance recommended measures to improve sleep hygeine Skin tag on chest. Surgical History Surgical History Appendectomy (~2001) Biopsy of breast Fibroadenoma section (~03/2006) Endometrial Ablation Thermachoice Status post breast augmentation Tobacco Smoking/Tobacco Use Status: Never Passive smoking exposure: Yes Second hand exposure: Yes Alcohol Alcohol Intake: never Substance Use Substance use: Never Substance use type: does not use Prental History History 2 Para Hx # Term Pregnancies 1 Multiple births Hx # Pregnancies Ectopic pregnancies AB induced Hx Number of Living Children AB spontaneous Vital Signs and Lab Results Vital Signs Most Recent Vital Signs in EMR: Most Recent Vital Signs Temp Pulse Resp BP Pulse Ox 36.4 C L 86 16 129/90 98 10/02/21 07:18 10/02/21 07:18 10/02/21 07:18 10/02/21 07:18 10/02/21 07:18 Point of Care Results Point of Care Results: POC- Test(urine) Negative 10/02/21 07:47 Lab Results Blood Type / Crossmatch: No Data to Display Complete Blood Count: No Data to Display Complete Metabolic Panel: No Data to Display Liver Function Panel: No Data to Display Coagulation Panel: No Data to Display Cardiac Panel: No Data to Display Arterial Blood Gas: No Data to Display Venous Blood Gas: No Data to Display Pancreas Panel: No Data to Display Thyroid Panel: No Data to Display Infectious Disease: Coronavirus (COVID-19)(PCR) Negative (Negative) 09/30/21 12:00 Coronavirus 2019 Source Nasal/Nares 09/30/21 12:00 Blood Cultures: No Data to Display Toxicology Panel: No Data to Display Panel: No Data to Display Anesthesia Assessment and Plan Anesthesia History Personal History: No History of Anesthesia Complications Family History: No Family History of Anesthesia Complications Exercise Tolerance Exercise Tolerance: Metabolic Equivalents>4 Pertinent Negatives Pertinent Negatives: No Symptoms of GERD, No Major Cardiovascular Symptoms or Complaints and No Major Pulmonary Symptoms or Complaints Cardiac & Pulmonary Exam Cardiac Exam: Normal S1/S2 Heart Sounds Pulmonary Exam: Clear Bilateral Breath Sounds Implantable Cardiac Device Does patient have a Pacemaker or an ICD?: No Airway Exam Known Difficult Airway: No Mallampati Class: 1 Mouth Opening: Normal (> 3cm) Thyromental Distance: Greater than 3 cm Neck Range of Motion: Full ROM Neck Circumference: Normal Teeth Condition: Normal Dentition ASA Classification ASA Score: ASA 1 Emergency Case?: No NPO Status NPO Status: NPO Clears >2 hours, Solids >8 hours Status Status: Negative HCG Anesthesia Plan Resuscitation Status: Full Code Anesthesia Technique: General Anesthesia Airway Planned: Natural Airway Monitors Used: Standard Monitors
[2021-10-02 09:04] VITALS: BMI 26.3
[2021-10-02] MEDS: Lidocaine 2% Jelly 6 ML SYR (09:34)
[2021-10-02 09:50] VITALS: BP 107/80; PULSE 75; RESP 16; TEMP 36.3; O2SAT 97
--- NOTE | 2021-10-02 09:54 | W.PM.DSUDISC ---
Discharge Plan Disposition Patient Disposition: HOME Condition: Good Discharge Details Attending Provider: Estrada Velazquez Primary Care Provider: Samson Wellington Home Meds and New Rx's Prescriptions: No Action No Known Home Meds Discharge Instructions Additional Instructions: no followup appt but ask pt to call in @ 1 week with a progress report Activity:: Activity as Tolerated Shower/Bathe:: 24 hours Diet:: As Tolerated Discharge Orders Discharge Orders: Discharge Order (Routine); Ordered 10/02/21 Ordered By: Estrada Velazquez DS: Diagnosis Discharge Diagnosis (1) Stress incontinence: Status: Acute
[2021-10-02 10:15] VITALS: BP 112/69; PULSE 68; RESP 18; TEMP 36.3; O2SAT 98
--- NOTE | 2021-10-02 10:52 | W.ANESPOSTOP ---
Postoperative Evaluation Date, Time and Location Date Performed: 10/02/21 Time Performed: 10:02 Patient Location: Day Surgery Unit Vital Signs Most Recent Imported Vital Signs: Most Recent Vital Signs Temp Pulse Resp BP Pulse Ox 36.3 C L 68 18 112/69 98 10/02/21 10:15 10/02/21 10:15 10/02/21 10:15 10/02/21 10:15 10/02/21 10:15 Pain Score Most Recent Pain Score: Most Recent Pain Score Pain Level 0 10/02/21 10:15 Assessment Mental Status: Awake (Alert & Oriented to Patient Baseline) Airway and Respiratory Function: Patent airway with normal (patient baseline) respiratory exam Cardiovascular Function: Hemodynamically Stable Hydration Status: Adequately Hydrated Nausea & Vomiting: No Nausea or Vomiting Pain: Pt. Denies Any Pain Peripheral Nerve Block: Patient did not receive a nerve block
--- NOTE | 2021-10-02 12:03 | W.PM.OP ---
Date of service: 10/02/21 Time of Service: 09:30 Operative Note Operative Note DATE OF PROCEDURE: 10/02/21 PRE-OP DIAGNOSIS: Stress urinary incontinence POST-OP DIAGNOSIS: same Intrinsic sphincter deficiency PROCEDURE: Cystoscopy, transurethral injection of Coaptite at bladder neck SURGEON: Estrada Velazquez ANESTHESIA TYPE: General:No Airway Refer to Anesthesia Record ESTIMATED BLOOD LOSS: 0 PATHOLOGY: none sent COMPLICATIONS: None Patient was transported to: same day Patient's condition: stable Implants: One vial Coaptite Indications: This is a 40-year-old woman who has a history of urinary incontinence. She has no real urgency symptoms, but she does leak with minimal and strenuous activity. She presents for an injection of a bulking agent at the bladder neck Findings: Normal-appearing bladder Procedure Description: Patient was brought to the operating room on 10/02/2021. She was given a dose of preoperative antibiotics. After successful induction of general anesthesia without intubation, she was placed in the dorsal lithotomy position. Her genitalia was prepped. 2% Xylocaine jelly was instilled at the urethral meatus. A 20 Faroese urethrotome sheath was passed through the urethra into the bladder. The bladder was inspected using a 30 degree lens. Both ureteral orifices appeared normal with no blood seen coming from either side. The remainder of the bladder was smooth-walled with no papillary or nodular lesions. We then withdrew the scope to the bladder neck which appeared slightly open at rest. Using a transurethral injection system, a vial of Coaptite was injected submucosally at the bladder neck. There appeared to be good coaptation of the bladder neck mucosa when it was viewed cystoscopically. The scope was removed. The bladder was drained with a 14 Faroese red rubber catheter. The catheter was then removed. The patient tolerated the procedure well with no complications.
== END 2021-10-02 10:25 | disposition home or self-care (01) ==
PROVIDERS: PCP Nurse Practitioner Family; Visit Provider Urology
PROC: (CPT 51715; principal; 2021-10-02 09:00)
DX: N36.42 Intrinsic sphincter deficiency (ISD) (principal); N39.3 Stress incontinence (female) (male)
CPT/HCPCS: 51715; J1885; J2250; J2405; J3010; L8606

== ENCOUNTER 2021-11-18 09:14 | Outpatient (REF) | payer BC, SELFPAY ==
[2021-11-18 17:42] LABS: Calculated LDL 89 mg/dL (<100); Cholesterol 151 mg/dL (<200); Glucose 89 mg/dL (74-106); HDL Cholesterol 51 mg/dL (40-60); Triglyceride 56 mg/dL (<150)
== END 2021-11-18 09:15 | disposition home or self-care (01) ==
LOC: NCHCN 09:14
PROVIDERS: Visit Provider Nurse Practitioner Family
DX: Z13.1 Encounter for screening for diabetes mellitus (principal); Z82.49 Family history of ischemic heart disease and other diseases of the circulatory system; Z13.220 Encounter for screening for lipoid disorders; Z83.3 Family history of diabetes mellitus
CPT/HCPCS: 80061; 82947

== ENCOUNTER 2022-01-28 17:45 | Outpatient (REF) | payer BC, SELFPAY ==
[2022-01-28 20:53] LABS: Abs Immature Grans 0.01 10^3/uL (0.0-0.06); Absolute Basophil Count 0.04 10^3/uL (0.0-0.2); Absolute Eosinophil Count 0.24 10^3/uL (0.0-0.7); Absolute Lymphocyte Count 2.16 10^3/uL (1.2-3.4); Absolute Monocyte Count 0.43 10^3/uL (0.1-0.8); Absolute Neutrophil Count 4.78 10^3/uL (1.2-6.7); Basophils % 0.5; Eosinophils % 3.1; HCT 39.7 % (36.0-46.0); Immature Grans % 0.1; Lymphocytes % 28.2; MCH 29.6 pg (27.0-33.0); MCHC 32.7 % (32.0-36.0); MCV 90 fL (80-95); MPV 10.2 fL (8.0-11.0); Monocytes % 5.6; Neutrophils % 62.5; Platelet Count 318 10^3/uL (130-400); RBC 4.39 10^6/uL (3.93-5.22); RDW-SD 40.1 fL; WBC 7.66 10^3/uL (4.4-10.8)
[2022-01-30 15:10] LABS: Chlamydia Result Negative (Negative); GC Result Negative (Negative)
== END 2022-01-28 17:46 | disposition home or self-care (01) ==
LOC: NCHCN 17:45
PROVIDERS: Visit Provider Nurse Practitioner Family
DX: R59.1 Generalized enlarged lymph nodes (principal)
CPT/HCPCS: 87491; 87591; 85025

== ENCOUNTER → 2022-03-13 14:22 | Outpatient (CLI) | payer BC, SELFPAY ==
--- NOTE | 2022-03-13 | DI.MAMMO_ITS ---
Exam(s) MG MAMMO SCREENING 60 MIN DUR EXAM: MG MAMMO SCREENING 60 MIN DUR CLINICAL HISTORY: IMPLANTS, SCREENING FOR BREAST CA,Z12.39. TECHNIQUE: Bilateral full field digital CC and MLO mammographic images were obtained with 3D tomosyn thesis and utilizing computer aided detection (CAD). Both conventional and implant displacement views were performed. COMPARISON: Prior mammograms were reviewed. Prior ultrasound examinations also reviewed FINDINGS: Again noted are bilateral retropectoral silicone implants. These appear intact. The fibroglandular tissue pattern is again noted be moderately dense, this somewhat decreasing the se nsitivity of the mammogram for finding hidden underlying lesions. There are no new obvious spiculated masses nor new malignant appearing microcalcification groups in e ither breast. The previously described microcalcification group in the right breast remains stable. Small nodular density laterally in the right breast is probably benign intramammary lymph node. There is no new significant architectural distortion nor skin thickening-retraction. IMPRESSION: Dense bilateral fibroglandular tissue. Stable microcalcification group right breast. Benign-appearing nodular density lateral right breast. Recommend ultrasound. This should be bilater al to sound examination given the findings on prior ultrasound examination which are hidden subjacent to her dense fibroglandular tissue and which require follow-up to ensure stability from the prior ul trasound examination 1 year ago. BI-RADS Category 0 - Assessment Incomplete: Need additional imaging evaluation, specifically bilatera l complete breast ultrasound Breast Density - Category C - Heterogeneously dense Breast density Category C or D implies that the patient has dense breast tissue. Dense breast tissue can make it harder to find cancer on a mammogram. Dense breast tissue is also associated with an incr eased risk of breast cancer. This information about the result of the mammogram report was provided to the patient to raise their awareness. Use this report when you speak with the patient about their risks for breast cancer, which includes their family history. At that time, you may recommend additional screening tests (Ultrasoun d or MRI) as these tests may add significant information. A negative radiographic report should not delay biopsy if a dominant or clinically suspicious mass is present. Up to ten percent of cancers are not identified on mammography. A negative report may reinforce clinical impression. Adenosis and dense breasts may obscure an underlying neoplasm. False positive reports average 6 to 10%. Patient will receive a letter notifying them of these results.
== END ==
PROVIDERS: Visit Provider Nurse Practitioner Family
DX: Z12.31 Encounter for screening mammogram for malignant neoplasm of breast (principal); Z98.82 Breast implant status; R92.8 Other abnormal and inconclusive findings on diagnostic imaging of breast
CPT/HCPCS: 77063; 77067

== ENCOUNTER 2022-08-10 18:28 | Outpatient (REF) | payer BC, SELFPAY ==
[2022-08-10 21:17] LABS: Anion Gap 6.9 mmol/L (3-11); BUN 7 mg/dL (7-18); C-Reactive Protein 0.41 mg/dL (0.0-0.3); CO2 28.1 mmol/L (21.0-32.0); CREATININE 0.7 mg/dL (0.55-1.02); Chloride 103 mmol/L (98-107); ESR 10 mm/hr (0-20); Estimated GFR 110.67 (mL/min/1.73m2); Glucose 78 mg/dL (74-106); HCT 41.9 % (36.0-46.0); MCHC 33.4 % (32.0-36.0); MCV 90 fL (80-95); MPV 9.4 fL (8.0-11.0); Platelet Count 328 10^3/uL (130-400); Potassium 3.8 mmol/L (3.5-5.1); RBC 4.67 10^6/uL (3.93-5.22); Sodium 138 mmol/L (136-145); WBC 7.54 10^3/uL (4.4-10.8)
[2022-08-10 21:39] LABS: COMMENT (LAB VIEW ONLY) 37.97 mg/dL; Creatinine,Urine 35.76 mg/dL; PROTEIN < 6.0 mg/dL
[2022-08-12 09:34] LABS: C3 Complement 123 mg/dL (81-157); C4 Complement 24 mg/dL (13-39)
[2022-08-12 13:33] LABS: ANA Interpretation Positive (Negative); ANA Titer Pattern 1:320 Speckled
[2022-08-14 15:13] LABS: dsDNA Ab, IgG 25.2 IU/mL (<30.0)
[2022-08-14 15:32] LABS: Sm (Smith) Ab, IgG 4.2 Units (<20.0)
== END 2022-08-10 18:29 | disposition home or self-care (01) ==
LOC: NCHCN 18:28
PROVIDERS: Visit Provider Nurse Practitioner Family
DX: R59.1 Generalized enlarged lymph nodes (principal)
CPT/HCPCS: 80048; 85027; 85652; 82565; 84156; 86038; 86140; 86147; 86160; 86225; 86235

== ENCOUNTER 2023-02-02 11:06 | Outpatient (REF) | payer BC, SELFPAY | END 2023-02-02 11:07 | disposition home or self-care (01) | LOC: LBN 11:06 | PROVIDERS: PCP Obstetrics & Gynecology Gynecology; Visit Provider Obstetrics & Gynecology Gynecology | DX: N89.8 Other specified noninflammatory disorders of vagina (principal) | CPT/HCPCS: 87480; 87510; 87660 ==

== ENCOUNTER → 2023-04-21 01:47 | Outpatient (CLI) | payer BC, SELFPAY ==
--- NOTE | 2023-04-21 | DI.US_ITS ---
Exam(s) US BREAST RT LIMITED MG MAMMO SCREENING EXAM: MG MAMMO SCREENING CLINICAL HISTORY: Screening COMPARISON: MG MG MAMMO DIAGNOSTIC UNI from 02/24/2021 US US BREAST LT COMPLETE from 02/24/2021 MG MG MAMMO SCREENING 60 MIN DUR from 03/13/2022 US US BREAST LT COMPLETE from 03/27/2022 US US BREAST RT COMPLETE from 03/27/2022 US US PELVIS TRANSVAGINAL from 04/10/2022 US US BREAST RT COMPLETE from 10/08/2022 US US BREAST RT LIMITED from 04/21/2023 TECHNIQUE: Craniocaudal and mediolateral oblique Full Field Digital Mammography views of the both br easts with Computer Aided Diagnosis followed by Tomosynthesis and right breast ultrasound. Implant displaced views were performed in addition to the routine mammographic views. FINDINGS: Mammography/Tomosynthesis: Masses/Architectural Distortion: Area of nodularity again noted in the subareolar really pool of the right breast. Lymph nodes again noted in the upper outer quadrants. Bilateral breast implants appea r intact. Microcalcifications: No suspicious pleomorphic-type are seen. Skin Thickening/Nipple Retraction: None. Right breast US: Echotexture: Normal appearance of the glandular tissue. Shadowing: No suspicious foci. Cyst: 1.1 by 0.7 by 0.9 partially cystic and solid nodule again noted in the 12 o'clock position. No posterior acoustic shadowing, unchanged in size and appearance Solid lesions: None seen. Ductal dilation: None. IMPRESSION: 1. No evidence of malignancy is noted. 2. Unless there is more urgent need, follow-up screening mammography is recommended, as per [employer] guidelines. BI-RADS Category 2 - Benign Findings Breast Density - Category C - Heterogeneously dense Breast density category C or D implies that the patient has dense breast tissue. Dense breast tissue is very common and is not abnormal but dense breast tissue can make it harder to find cancer on a ma mmogram. Also, dense breast tissue may increase their breast cancer risk. This information about the result of the mammogram report was provided to the patient to raise their awareness. Use this report when you speak with the patient about their risks for breast cancer, which includes their family hist ory. At that time, you may recommend for more screening tests (Ultrasound or MRI) as they might be us eful based on their risk. A negative radiographic report should not delay biopsy if a dominant or clinically suspicious mass is present. Up to ten percent of cancers are not identified on mammography. A negative report may reinforce clinical impression. Adenosis and dense breasts may obscure an underlying neoplasm. False positive reports average 6 to 10%. Patient will receive a letter notifying them of these results.
== END ==
PROVIDERS: PCP Obstetrics & Gynecology Gynecology; Visit Provider Nurse Practitioner Family
DX: Z12.31 Encounter for screening mammogram for malignant neoplasm of breast (principal); R92.8 Other abnormal and inconclusive findings on diagnostic imaging of breast
CPT/HCPCS: 76642; 77062; 77063; 77066; 77067; G0279

== ENCOUNTER 2024-01-24 15:02 | Outpatient (REF) | payer BC, SELFPAY | END 2024-01-24 15:03 | disposition home or self-care (01) | LOC: LBN 15:02 | PROVIDERS: PCP Nurse Practitioner Family; Visit Provider Advanced Practice Midwife | DX: R10.2 Pelvic and perineal pain (principal) | CPT/HCPCS: 87480; 87510; 87660 ==

== ENCOUNTER 2024-02-23 13:54 | Outpatient (REF) | payer BC, SELFPAY | END 2024-02-23 13:55 | disposition home or self-care (01) | LOC: LBN 13:54 | PROVIDERS: PCP Nurse Practitioner Family; Visit Provider Advanced Practice Midwife | DX: N89.8 Other specified noninflammatory disorders of vagina (principal) | CPT/HCPCS: 87480; 87510; 87660 ==

== ENCOUNTER 2024-08-15 16:31 | Outpatient (REF) | payer BC, SELFPAY ==
[2024-08-15 16:54] LABS: Bilirubin Negative (Negative); Blood Moderate (Negative); Clarity Clear (Clear); Glucose Negative (Negative); Ketones Negative (Negative); Leukocyte Esterase Small (Negative); Nitrite Positive (Negative); Urobilinogen 0.2 mg/dL (Up to 0.2); pH 5.5 (5-8)
[2024-08-15 17:08] LABS: Bacteria Packed HPF (Negative); Crystals Negative HPF (Negative); Epithelial Cells Few HPF (Negative); Mucus Negative (Negative); Other Cells Rare Renal (Negative); RBC 20-50 HPF (0-2); WBC >50 HPF (0-5)
[2024-08-15 17:09] LABS: C & S Indicated? C&S Done As Ordered; Casts Negative LPF (Negative)
== END 2024-08-15 16:32 | disposition home or self-care (01) ==
LOC: LBN 16:31
PROVIDERS: PCP Nurse Practitioner Family; Visit Provider Advanced Practice Midwife
DX: R30.0 Dysuria (principal)
CPT/HCPCS: 87077; 81003; 81015; 87086; 87186

== ENCOUNTER 2025-01-09 15:49 | Outpatient (REF) | payer BC, SELFPAY ==
--- NOTE | 2025-01-09 15:30 | PAPFT_PTH ---
PATIENT: Susanna Emery LOC: [facility] U#:[id number] AGE/SX: 44/F ROOM: RE01/09/[address]: Shaniqua Almonte : 1980 BED: DIS: 01/09/2025 SPEC #: [id number] RECD: 01/09/25 17:21 STATUS: BAYLEE REGrabiel #: [id number] EYAD: 01/09/25 15:[address]: Shaniqua Almonte DEPT: [facility] Cytology RECD BY: Michell Wolfe ENTERED: 01/09/25 17:21 SP TYPE: PAPFT OTHR DR: Vicky Akhtar Tissues: 1 - CX/ENDOCX FOR PAP SMEARS Procedures: PAP THIN PREP/[facility] Screening HPV DNA PROBE Comments: [id number] (HPV 16 & 18/45)
== END 2025-01-09 15:50 | disposition home or self-care (01) ==
LOC: LBN 15:49
PROVIDERS: PCP Nurse Practitioner Family; Visit Provider Advanced Practice Midwife
DX: Z12.4 Encounter for screening for malignant neoplasm of cervix (principal)
CPT/HCPCS: 88142; 87624

== ENCOUNTER 2025-01-11 05:20 | Outpatient (CLI) | payer BC, SELFPAY ==
[2025-01-11 08:25] LABS: HCT 42.1 % (36.0-46.0); HGB 14.0 g/dL (11.2-15.7); MCH 29.7 pg (27.0-33.0); MCHC 33.3 % (32.0-36.0); MCV 89 fL (80-95); MPV 9.1 fL (8.0-11.0); Platelet Count 317 10^3/uL (130-400); RBC 4.72 10^6/uL (3.93-5.22); RDW 12.0 % (11.7-14.6); RDW-SD 39.8 fL; WBC 5.97 10^3/uL (4.4-10.8)
[2025-01-11 09:07] LABS: Hemoglobin A1C 4.9 % (<5.7)
[2025-01-11 09:43] LABS: ALT 16 U/L (14-59); AST 13 U/L (15-37); Albumin 3.6 g/dL (3.4-5.0); Alkaline Phosphatase 75 U/L (46-116); Anion Gap 6.7 mmol/L (3-11); BUN 10 mg/dL (7-18); Bilirubin, Total 0.5 mg/dL (0.2-1.0); CO2 29.3 mmol/L (21.0-32.0); Calcium 8.8 mg/dL (8.5-10.1); Calculated LDL 112 mg/dL (<100); Chloride 102 mmol/L (98-107); Cholesterol 173 mg/dL (<200); Estimated GFR 108.62 (mL/min/1.73m2); Glucose 84 mg/dL (74-106); HDL Cholesterol 48 mg/dL (>or=50); Potassium 4.1 mmol/L (3.5-5.1); Sodium 138 mmol/L (136-145); TSH (W/Ref FT4) 0.81 uIU/mL (0.36-3.74); Total Protein 7.5 g/dL (6.4-8.2); Triglyceride 65 mg/dL (<150)
== END 2025-01-11 05:21 | disposition home or self-care (01) ==
LOC: LBO 05:20
PROVIDERS: PCP Nurse Practitioner Family; Visit Provider Advanced Practice Midwife
DX: Z01.419 Encounter for gynecological examination (general) (routine) without abnormal findings (principal); Z34.90 Encounter for supervision of normal pregnancy, unspecified, unspecified trimester
CPT/HCPCS: 36415; 80053; 80061; 85027; 83036; 84443

== ENCOUNTER 2025-01-29 11:31 | Outpatient (REF) | payer BC, SELFPAY | END 2025-01-29 11:32 | disposition home or self-care (01) | LOC: LBN 11:31 | PROVIDERS: PCP Nurse Practitioner Family; Visit Provider Nurse Practitioner Women's Health | DX: R30.0 Dysuria (principal) | CPT/HCPCS: 87077; 87086; 87186 ==

== ENCOUNTER → 2025-02-16 13:43 | Outpatient (CLI) | payer BC, SELFPAY ==
--- NOTE | 2025-02-16 14:00 | DI.MAMMO_ITS ---
Exam(s) MAMMO SCREENING EXAM: MAMMO SCREENING CLINICAL HISTORY: screening,z12.39, implants TECHNIQUE: Mammograms were interpreted according to the usual protocol including computer analysis with CAD system, tomosynthesis and C-view imaging. Implant displaced views were performed in addition to the routine views. 2020 through 2023 COMPARISON: 2020 through 2023 mammograms and ultrasound FINDINGS: The breasts are composed of heterogeneously dense fibroglandular densities, Breast Density category C. No suspicious masses or suspicious microcalcifications are seen. Are stable benign-appearing calcifications in the right breast. Air has been no sick visible change in the previously noted nodule in the subareolar 12 o'clock position of the right breast. Lymph nodes are again noted in lateral right breast. No skin thickening or abnormal axillary lymph nodes are seen. There has been no significant change from prior exams. IMPRESSION: BI-RADS Category 2 - Negative Mammogram with benign findings. Yearly screening mammography is recommended. Breast Density: Category C - The breasts are heterogeneously dense, which may obscure small masses. Breast density Category C or D implies that the patient has dense breast tissue. Dense breast tissue can make it harder to find cancer on a mammogram. Dense breast tissue is also associated with an increased risk of breast cancer. This information about the result of the mammogram report was provided to the patient to raise their awareness. Use this report when you speak with the patient about their risks for breast cancer, which includes their family history. At that time, you may recommend additional screening tests (Ultrasound or MRI) as these tests may add significant information. A negative radiographic report should not delay biopsy if a dominant or clinically suspicious mass is present. Up to ten percent of cancers are not identified on mammography. A negative report may reinforce clinical impression. Adenosis and dense breasts may obscure an underlying neoplasm. False positive reports average 6 to 10%.
== END ==
LOC: DI 13:43
PROVIDERS: PCP Nurse Practitioner Family; Visit Provider Advanced Practice Midwife
DX: Z12.31 Encounter for screening mammogram for malignant neoplasm of breast (principal); R92.323 Mammographic fibroglandular density, bilateral breasts; R92.333 Mammographic heterogeneous density, bilateral breasts
CPT/HCPCS: 77063; 77067